=== PATIENT | male | born 1960 | race Caucasian/White ===

== ENCOUNTER 2023-02-15 12:51 | Outpatient (REF) | payer BC, SELFPAY ==
[2023-02-16 13:09] LABS: Urine Cytology See Pathology rpt
== END 2023-02-15 12:52 | disposition home or self-care (01) ==
LOC: HO.LAB 12:51
PROVIDERS: PCP Internal Medicine; Visit Provider Nurse Practitioner Family
DX: R31.0 Gross hematuria (principal); C61 Malignant neoplasm of prostate; Z87.891 Personal history of nicotine dependence
CPT/HCPCS: 81003; 88112

== ENCOUNTER 2023-02-15 12:51 | Outpatient (AMB) | payer BC, SELFPAY ==
--- NOTE | 2023-02-15 13:08 | A.OFFVIS_ITS ---
Intake Intake Visit Reasons: Gross Hematuria Intake Note: New Patient presents for initial visit for gross hematuria Urology Medications: none Blood Thinner: none Embedded Hardware Engineer Required: No Accompanied by: Self / Same As Patient Allergies No Known Allergies Allergy (Verified 02/15/23 14:01) Medication List - Last Reconciled 02/15/23 by MARGARET Garcia amlodipine 10 mg PO DAILY HPI HPI Comments History of Present Illness Details Alcides is a very pleasant 62-year-old male patient of Dr. Dominguez. He has a past medical history of hypertension, GERD, hemorrhoids, osteoarthritis, vitamin-D deficiency, and prostate cancer. He presents to the office today as a new patient for gross hematuria. In discussion with the patient today reports a previous history of prostate cancer approximately 5 years ago in underwent a prostatectomy as well as radiation. he reports following up with [facility] in has since been in remission. He reports his PSAs have all been undetectable. He presents to the office today for new onset gross hematuria x2. Discussed at length potential causes of gross hematuria related to history of radiation. However, patient does have a previous smoking history and is currently smokes recreational marijuana. He denies any previous known chemical workplace exposure. He denies urinary urgency, urinary frequency, incontinence, nocturia, hematuria, dysuria, foul smelling urine, changes to urinary stream, flank pain, fever, and or chills. He is happy with his current voiding parameters. Discussed surveillance monitoring verses further gross hematuria workup given history of smoking. Discussed risks and benefits at length. All questions were answered. In office urinalysis results reviewed with the patient today. No microscopic hematuria noted. [facility] Medical History GERD (gastroesophageal reflux disease) Osteoarthritis of left knee Impaired fasting glucose Mixed hyperlipidemia Tendonitis Hemorrhoids Mononucleosis Hypertension Vitamin D deficiency Surgical History (Updated 02/15/23 @ 15:57 by Emily Olvera) History of prostatectomy Review of Systems Const Reports no additional complaints Eyes Reports no additional complaints ENT Reports no additional complaints Card Reports as per HPI Resp Reports no additional complaints GI Reports as per HPI Reports as per HPI Musc Reports as per HPI Neuro Reports no additional complaints Psych Reports no additional complaints Endo Reports no additional complaints Dudley/Lymph Reports no additional complaints Aller/Immun Reports no additional complaints Physical Exam Const General: cooperative, healthy appearing, comfortable, no acute distress, well developed, alert and awake Orientation/consciousness: patient oriented x3 Limitations: no limitations HEENT Head: Yes normal to inspection, Yes normocephalic and Yes atraumatic Ears: hearing grossly normal bilaterally Eyes General: appearance normal, both eyes and all related structures Neck Neck: Yes normal visual inspection and Yes trachea midline Chest Chest palpation & inspection: normal inspection of the chest Resp Effort & Inspection: normal respiratory effort and able to speak in complete sentences Cardio Rate: regular rate GI Inspection: Yes normal to inspection General: Yes no CVA tenderness Back/Spine/Pelvis Back: no CVA tenderness Skin General skin exam: no rashes or lesions noted Neuro General: patient oriented x3 Extrem General: Yes normal to inspection Psych Appearance: grossly normal and well kempt Mental Status: mental status grossly normal Speech and movement: Normal speech and movement present and Clear speech present Affect: normal affect Attitude: cooperative Thought process: Normal thought process present Thought content: Normal thought content present Insight: Fair insight present (Psych) Judgement: Fair judgement present (Psych) Results AMB Urinalysis, Automated UA Leukoctes 0 Shahid/uL Last Edit by Violin Memory on 02/15/23 13:37 UA Nitrite Negative Last Edit by Violin Memory on 02/15/23 13:37 UA Urobilinogen 0.2 mg/dL Last Edit by Violin Memory on 02/15/23 13:37 UA Protein 15 mg/dL Last Edit by Violin Memory on 02/15/23 13:37 UA pH 6.0 Last Edit by Violin Memory on 02/15/23 13:37 UA Blood 0 Enrique/uL Last Edit by Violin Memory on 02/15/23 13:37 UA Specific [place] 1.025 Last Edit by Violin Memory on 02/15/23 13:37 UA Ketone Negative Last Edit by Violin Memory on 02/15/23 13:37 UA Bilirubin 0 mg/dL Last Edit by Violin Memory on 02/15/23 13:37 UA Glucose 0 mg/dL Last Edit by Violin Memory on 02/15/23 13:37 Results Reviewed Results Reviewed: Laboratory Last Values Urine pH (Auto) 6.0 02/15/23 13:33 Specific [place] (Auto) 1.025 02/15/23 13:33 Urine Protein (Auto) 15 mg/dL 02/15/23 13:33 Glucose (UA)(Auto) 0 mg/dL 02/15/23 13:33 Urine Ketones (Auto) Negative 02/15/23 13:33 Urine Blood (Auto) 0 Enrique/uL 02/15/23 13:33 Urine Nitrite (Auto) Negative 02/15/23 13:33 Urine Bilirubin (Auto) 0 mg/dL 02/15/23 13:33 Urine Urobilinogen (Auto) 0.2 mg/dL 02/15/23 13:33 Leukocyte Esterase (Auto) 0 Shahid/uL 02/15/23 13:33 Assessment & Plan Assessment & Plan (1) Gross hematuria: Code(s): R31.0 - Gross hematuria (2) History of nicotine dependence: Code(s): Z87.891 - Personal history of nicotine dependence (3) Prostate cancer: Code(s): C61 - Malignant neoplasm of prostate Plan In office urinalysis results reviewed with the patient today; as noted above; will send for urine cytology. Discussed at length potential causes of gross hematuria Discussed likely related to history of prostate cancer with radiation however patient with smoking history and currently smokes recreational marijuana. Discussed risks and benefits of surveillance monitoring verses further workup with urine cytology, CT urogram, and in office cystoscopy. Will obtain CT urogram for further assessment evaluation. BUN and creatinine ordered for imaging Patient reports be happy with current voiding parameters. Educated, encouraged, and stressed the importance of drinking plenty of water daily. Follow-up in office cystoscopy with imaging and labs to be completed prior; or sooner with any issues, concerns, and or questions. Orders: Orders Blood Urea Nitrogen 02/15/23 R31.0 - Gross hematuria CT urogram 02/15/23 R31.0 - Gross hematuria AMB Urinalysis Automated 02/15/23 Z13.9 - Encounter for screening, unspecified Urine Cytology 02/15/23 R31.0 - Gross hematuria Creatinine 02/15/23 R31.0 - Gross hematuria Patient Instructions: The patient had an opportunity to ask questions regarding the treatment plan. All questions were answered. Physical exam, labs, and imaging were discussed and reviewed in detail. As well as risks, benefits, and discussion of treatment choices. No major barriers to understanding were identified. The patient expressed understanding and agreement with the above treatment plan. The patient was made aware they should contact our office by phone for worsening of their current condition, the appearance of new symptoms, or with any questions or concerns. Compliance is encouraged with any medications and follow up testing that is ordered. It is a privilege to be allowed the opportunity to participate in? your urological care.? Again, if you have any questions or concerns If you have any questions or concerns please do not hesitate to contact me. The office is [phone]. This note is constructed using voice recognition software. While every effort has been made to ensure accuracy dross puller errors may have been included. Yours sincerely, MARGARET Garcia Coding Level of Care Code New Pt Level 3 (67891) Diagnoses Gross hematuria R31.0 History of nicotine dependence Z87.891 Prostate cancer C61
== END 2023-02-15 13:48 | disposition home or self-care (01) ==
PROVIDERS: PCP Internal Medicine; Visit Provider Nurse Practitioner Family
DX: R31.0 Gross hematuria (principal); Z87.891 Personal history of nicotine dependence; C61 Malignant neoplasm of prostate
CPT/HCPCS: 99203

== ENCOUNTER 2023-04-08 15:00 | Outpatient (REF) | payer BC, SELFPAY ==
--- NOTE | ~2023-04-08 | CT_ITS ---
EXAMINATION: CT ABDOMEN AND PELVIS WITHOUT AND WITH CONTRAST CLINICAL INFORMATION: Gross hematuria COMPARISON: None available. TECHNIQUE: Noncontrast CT of the abdomen and pelvis is performed followed by split bolus contrast-enhanced images using 85 mL Omnipaque 350 contrast.? Postcontrast imaging is performed during the combined nephrogram and excretion phase. Sagittal and coronal reformatted images were obtained on the technologist's workstation for both the precontrast and postcontrast phases. This CT examination was performed using dose optimization techniques as appropriate, variously including the following: *Automated exposure control *Adjustment of mA and/or kV according to patient size (this includes techniques or standardized protocols for targeted exams where dose is matched to indication/reason for exam; i.e. extremities or head) *Use of iterative reconstruction technique DLP: 1428 mGy-cm FINDINGS: LUNG BASES: Bilateral lung bases are clear. LIVER: No focal lesion is seen in the liver. There is hepatic steatosis, mean attenuation of only 9.5 Hounsfield units, compared to splenic attenuation of 43.0 Hounsfield units. GALLBLADDER AND BILIARY TREE: Gallbladder appears unremarkable without calcified stones. Common bile duct is not dilated. SPLEEN: The spleen is normal in size without focal lesion. PANCREAS: The pancreas appears unremarkable. ADRENAL GLANDS: Adrenal glands are normal in size without focal lesion bilaterally. KIDNEYS: Precontrast images show no calcified renal stones. Post contrast nephrographic phase images show normal uniform bilateral nephrograms. Excretory phase images show normal excretion of contrast into bilateral renal calyces, pelvises and ureters without filling defects. BOWELS: There is no abnormal dilatation of large and small bowel loops. Multiple diverticula are seen in the descending colon without inflammatory changes. RETROPERITONEUM: No abnormally enlarged retroperitoneal lymph nodes, mass or hematoma could be seen. BLOOD VESSELS: Abdominal aorta is normal in size with extensive atherosclerotic calcifications and smoothly patent. ABDOMINAL WALL: Abdominal subcutaneous tissue and muscle are intact. No evidence of ventral hernia. PERITONEUM: Several periportal lymph nodes are seen surrounding the main portal vein, measuring up to 0.9 cm in short axis, series 8 image #31. There was no ascites. There were no abdominal peritoneal inflammatory changes seen. No free peritoneal air was seen. No abnormally enlarged mesenteric lymph nodes are found. BONES: No fracture or dislocation. No focal bone lesion diagnostic of metastatic disease could be seen in the lumbar region. EXAMINATION: CT pelvis. TECHNIQUE: Multiple axial images were obtained from iliac crest to the inferior pubic rami before and following the administration of 85 mL of Omnipaque 350. Coronal and sagittal images were reconstructed from axial image data. Maximum intensity projection images of the pelvis were also reconstructed. Dose reduction technique: One or more of the following individual dose optimization techniques were used including: Automated exposure control, mA and/or kV were adjusted according to patient size or iterative reconstruction. FINDINGS: URINARY BLADDER AND URETERS: Precontrast images show no calcified urinary bladder stone or distal ureteric stones. A urachal sinus tract is seen leading from the dome of urinary bladder up to the anterior abdominal peritoneum just beneath the umbilicus. Urinary bladder fills normally with contrast without filling defects. There is normal visualization of bilateral distal ureters which are normal in size. There is mild dilatation of the upper prostatic urethra. BOWELS: There is no abnormal dilatation of large and small bowel loops. Numerous diverticula are seen in the sigmoid colon and descending colon without inflammatory changes. Appendix cannot be identified. GENITAL ORGANS: Seminal vesicles are unremarkable. Prostate gland is surgically absent. Multiple surgical clips are seen in the region of prostatectomy bed. LYMPH NODES: No abnormally enlarged iliac or inguinal lymph nodes are seen. PERITONEUM: No inflammatory changes, ascites or free peritoneal air are found in the pelvis. Bilateral small inguinal hernias containing mesenteric fat. BONES: No fracture or dislocation. No focal bone lesion diagnostic of metastatic disease could be seen in the pelvis. CT/CT urogram IMPRESSION: 1. No evidence of renal mass, nephrolithiasis or hydroureteronephrosis. 2. A urachal sinus tract is seen leading from the dome of the urinary bladder up to the anterior abdominal peritoneum just beneath the umbilicus. 3. Descending and sigmoid: Diverticulosis without diverticulitis. 4. Marked Hepatic steatosis. 5. Nonspecific periportal lymph nodes. 6. Bilateral small inguinal hernias containing mesenteric fat. 7. Status post prostatectomy.
[2023-04-08] MEDS: iohexoL 350 MG/ML 75 ML INFUS..BTL 85 ML IV (16:23)
[2023-04-09 08:34] LABS: Creatinine POC 0.8 mg/dL (0.5-1.4); GFR POC > 60
== END 2023-04-08 15:01 | disposition home or self-care (01) ==
LOC: HO.CT 15:00
PROVIDERS: PCP Internal Medicine; Visit Provider Nurse Practitioner Family
DX: R31.0 Gross hematuria (principal)
CPT/HCPCS: 74178; 82565; Q9967

== ENCOUNTER 2023-04-24 14:45 | Outpatient (AMB) | payer BC, SELFPAY ==
--- NOTE | 2023-04-24 15:32 | A.OFFVIS_ITS ---
Intake Intake Visit Reasons: cysto/CT Intake Note: Patient presents today for a Cystoscopy Meds: None Allergies to Antibiotic: No Known Allergies Blood Thinner: None Urinalysis test clear for Cysto? Yes Disposable Uro-G Cystoscope Cannula: Lot: [id number] Exp: 07/29/2024 Round Kiln Drawer Required: Yes Accompanied by: Self / Same As Patient Allergies No Known Allergies Allergy (Verified 04/24/23 15:33) HPI HPI Comments History of Present Illness Details Alcides is a pleasant male. He is a patient of Dr. Dominguez. He seen for the following urologic conditions - prostate cancer - hematuria - radiation cystitis Here for cystoscopy Cystoscopy shows radiation cystitis Radiation cystitis Episodes of hematuria Discussed situations with this might occur Could use short courses of tranexamic acid if needed Prostate cancer Initial therapy prostatectomy Rising PSA Salvage radiation 2018 [facility] Medical History GERD (gastroesophageal reflux disease) Osteoarthritis of left knee Impaired fasting glucose Mixed hyperlipidemia Tendonitis Hemorrhoids Mononucleosis Hypertension Vitamin D deficiency Surgical History History of prostatectomy Review of Systems Const Denies chills and Denies fever(s) Card Reports no additional complaints and Denies syncope Resp Denies cough GI Denies abdominal pain and Denies heartburn Reports as per HPI and Denies change in libido Neuro Denies syncope Psych Denies change in libido Endo Denies change in libido Physical Exam Const General: cooperative, healthy appearing, comfortable and no acute distress Orientation/consciousness: patient oriented x3 HEENT Face and sinus: Yes normal facial exam Mouth: moist mucous membranes Neck Neck: Yes normal visual inspection, Yes full ROM and Yes trachea midline Chest Chest palpation & inspection: normal inspection of the chest Resp Effort & Inspection: normal respiratory effort, able to speak in complete sentences and no respiratory distress GI Inspection: Yes normal to inspection Back/Spine/Pelvis Cervical Spine: normal cervical lordosis Thoracic/Lumbar Spine: thoracic and lumbar spine normal to inspection Skin General skin exam: no rashes or lesions noted Neuro General: patient oriented x3, gait normal, tone normal and moves all extremities Extrem General: Yes normal to inspection and Yes capillary refill normal Office Procedures Cystoscopy Consent Discussed risk and benefit or proposed procedure with the patient. Information consent for procedure given to the patient. Discussed technical aspects, risks, benefits and alternatives in full. Addressed all of the patient's questions and concerns regarding the procedure. The patient demonstrated knowledge and understanding. They wish to proceed with this procedure. Preparation The patient was prepped in the usual manner. A sulfonator operator was present and in the room. Genitalia was prepped with betadine solution in a sterile manner. Lidocaine Jelly 2% was placed into the urethra and 16Fr flexible Olympus cystoscope was inserted into the meatus after adequate lubrication. Procedure Meatus circumcised Urethra anterior posterior urethra normal Prostatic Urethra prostate absent Bladder examination with retroflexion of cystoscope Bladder Orifices normal shape and position Bladder Capacity normal Trabeculations radiation cystitis throughout base of bladder Cellule Formation - Diverticulum Formation - Mucosal Erythema - Bladder Tumor - [id number] DISPOSABLE SCOPE URO-G FLEXIBLE SCOPE Procedure code (CPT) selection complete Office Meds lidocaine HCl 2 % mucosal jelly in applicator Performing Provider: Teja Neal MD Performing Location: [facility] Administered by: Rogelio Willard LPN on 04/24/23 15:54 Dose Route Admin Location Dispensed Lot Number Expiration Date [facility] 10 mL intra-urethral 10 mL nitrofurantoin monohydrate/macrocrystals 100 mg capsule Performing Provider: Teja Neal MD Performing Location: [facility] Administered by: Rogelio Willard LPN on 04/24/23 15:54 Dose Route Admin Location Dispensed Lot Number Expiration Date [facility] 100 mg PO 1 cap naproxen 500 mg tablet Performing Provider: Teja Neal MD Performing Location: [facility] Administered by: Rogelio Willard LPN on 04/24/23 15:54 Dose Route Admin Location Dispensed Lot Number Expiration Date [facility] 500 mg PO 1 tab Results AMB Urinalysis, Automated UA Leukoctes 0 Shahid/uL Last Edit by Kristan Mosqueda CMA on 04/24/23 15 :53 UA Nitrite Negative Last Edit by [facility], [facility] on 04/24/23 15: 53 UA Urobilinogen 0.2 mg/dL Last [facility], [facility] on 4 15:53 UA Protein 0 mg/dL Last Edit by [facility], [facility] on 04/24/23 15:53 UA pH 6.0 Last Edit by [facility], [facility] on 04/24/23 15:53 UA Blood 0 Enrique/uL Last Edit by [facility], [facility] on 04/24/23 15:53 UA Specific [place] 1.025 Last Edit by [facility], [facility] on 15:53 UA Ketone Negative Last Edit by [facility], [facility] on 04/24/23 15:5 3 UA Bilirubin 0 mg/dL Last Edit by [facility], [facility] on 04/24/23 15: 53 UA Glucose 0 mg/dL Last Edit by [facility], [facility] on 04/24/23 15:53 Results Reviewed Results Reviewed: Laboratory Last Values Urine pH (Auto) 6.0 04/24/23 15:52 Specific [place] (Auto) 1.025 04/24/23 15:52 Urine Protein (Auto) 0 mg/dL 04/24/23 15:52 Glucose (UA)(Auto) 0 mg/dL 04/24/23 15:52 Urine Ketones (Auto) Negative 04/24/23 15:52 Urine Blood (Auto) 0 Enrique/uL 04/24/23 15:52 Urine Nitrite (Auto) Negative 04/24/23 15:52 Urine Bilirubin (Auto) 0 mg/dL 04/24/23 15:52 Urine Urobilinogen (Auto) 0.2 mg/dL 04/24/23 15:52 Leukocyte Esterase (Auto) 0 Shahid/uL 04/24/23 15:52 Assessment & Plan Assessment & Plan (1) Prostate cancer: Code(s): C61 - Malignant neoplasm of prostate (2) Gross hematuria: Code(s): R31.0 - Gross hematuria (3) Radiation cystitis: Code(s): N30.40 - Irradiation cystitis without hematuria Plan Twelve month follow-up PSA Orders: Orders AMB Cystoscopy Today C61 - Malignant neoplasm of prostate, R31.0 - Gross hematuria AMB Urinalysis Automated Today R33.9 - Retention of urine, unspecified Prostate Specific Antigen 364 Days C61 - Malignant neoplasm of prostate Patient Instructions: Imaging studies, laboratory and physical exam results were discussed and reviewed in detail. No major barriers to patient understanding were identified. An opportunity to ask questions regarding the treatment plan was provided. All questions were answered. The patient expressed understanding and agreement with the above treatment plan. The patient is aware they should contact our office by phone for worsening of their current condition or the appearance of new urologic symptoms. Compliance is encouraged with any medications and followup testing that is ordered. It is a privilege to participate in the urologic care of your patient. If you have any questions or concerns regarding treatment for the above conditions, or other urologic issues, please do not hesitate to contact me. The office telephone contact is [phone]. This note is constructed using voice recognition software. While every effort has been made to ensure accuracy computer forensics analyst errors may have been included. Yours sincerely, Dr Teja Neal MD, [facility] - Urology Providers of Expert, Compassionate Care for the Genitourinary System Coding Level of Care Code Est Pt Level 3 (13472) Diagnoses Prostate cancer C61 Gross hematuria R31.0 Radiation cystitis N30.40 CPT Codes Cystoscopy - CPT: [id number] ([id number])
== END 2023-04-24 16:32 | disposition home or self-care (01) ==
PROVIDERS: PCP Internal Medicine; Visit Provider Urology
DX: C61 Malignant neoplasm of prostate (principal); R31.0 Gross hematuria; N30.40 Irradiation cystitis without hematuria
CPT/HCPCS: 52000; 99213

== ENCOUNTER → 2023-04-24 14:45 | Outpatient (BNVA) | payer BC, SELFPAY | PROVIDERS: PCP Internal Medicine; Visit Provider Urology | DX: C61 Malignant neoplasm of prostate (principal); N30.41 Irradiation cystitis with hematuria | CPT/HCPCS: 52000; 81003 ==

== ENCOUNTER 2024-06-16 09:47 | Outpatient (AMB) | payer BC, SELFPAY ==
--- NOTE | 2024-06-16 10:00 | A.OFFVIS_ITS ---
Intake Visit Reasons: 1y PSA(set) Intake Note: Patient presents for follow up visit for prostate cancer , hematuria, and psa lab results PSA: <0.1 Urology Medications: none Blood Thinner: none Metal Grinder Required: No Accompanied by: Self / Same As Patient Allergies No Known Allergies Allergy (Verified 06/16/24 10:28) Medication List - Last Reconciled 06/16/24 by DUNCAN Garcia lisinopril 10 mg PO DAILY HPI Comments Details: Alcides is a pleasant 63 year old male patient of Dr. Dominguez. He has a past medical history of GERD, osteoarthritis, hyperlipidemia, tendinitis, hemorrhoids, hypertension, and vitamin-D deficiency. He presents to the office today for follow-up of his prostate cancer, hematuria, and radiation cystitis. In discussion with the patient today reports to be doing and feeling well. He denies having had any bothersome urinary issues or concerns since his last office visit here over a year ago. Of note, patient underwent an office cystoscopy 05/[address] Neal that showed radiation cystitis as patient had been experiencing episodes of hematuria. Recent PSA results reviewed with the patient today. PSA remains undetectable. 06/09 0.1. He reports continuing to follow-up with PCP as well as radiation oncologist. In office urinalysis results reviewed with the patient today. When asked he denies urinary urgency, urinary frequency, incontinence, nocturia, dysuria, foul smelling urine, changes to urinary stream, flank pain, fever, and or chills. He is happy with his current voiding parameters. He is enquiring. Follow-up as PSA has remained undetectable and continues to follow-up with Radiation Oncology in does not feel he has any bothersome urinary issues. He otherwise offers no other issues or concerns at this time Prostate cancer Initial therapy prostatectomy Rising PSA Salvage radiation 2018 Discussion Notes I discussed with the patient the ongoing management strategy for his radiation cystitis and the importance of continuous monitoring of PSA levels to ensure they remain undetectable. The patient understands that his condition is stable and requires monitoring. He is requesting to monitor PSAs with his primary care physician. We reviewed that the potential risks associated with radiation cystitis include occasional bleeding episodes, which currently resolve spontaneously. I explained that any significant change in symptoms should prompt immediate review. We also discussed the routine protocol of scheduling follow- ups. The patient consented to this plan and is comfortable with current management, acknowledging future visits with our department can be arranged. [facility] Medical History GERD (gastroesophageal reflux disease) Osteoarthritis of left knee Impaired fasting glucose Mixed hyperlipidemia Tendonitis Hemorrhoids Mononucleosis Hypertension Vitamin D deficiency Surgical History History of prostatectomy Review of Systems Const Reports no additional complaints Eyes Reports no additional complaints ENT Reports no additional complaints Card Reports as per HPI Resp Reports no additional complaints GI Reports as per HPI Reports as per HPI Musc Reports as per HPI Neuro Reports no additional complaints Psych Reports no additional complaints Endo Reports no additional complaints Dudley/Lymph Reports no additional complaints Aller/Immun Reports no additional complaints Physical Exam Const General: cooperative, healthy appearing, comfortable, no acute distress, well developed, alert and awake Orientation/consciousness: patient oriented x3 Limitations: no limitations HEENT Head: Yes normal to inspection, Yes normocephalic and Yes atraumatic Ears: hearing grossly normal bilaterally Eyes General: appearance normal, both eyes and all related structures Neck Neck: Yes normal visual inspection and Yes trachea midline Chest Chest palpation & inspection: normal inspection of the chest Resp Effort & Inspection: normal respiratory effort and able to speak in complete sentences Cardio Rate: regular rate GI Inspection: Yes normal to inspection General: Yes no CVA tenderness Back/Spine/Pelvis Back: no CVA tenderness Skin General skin exam: no rashes or lesions noted Neuro General: patient oriented x3 Extrem General: Yes normal to inspection Psych Appearance: grossly normal and well kempt Mental Status: mental status grossly normal Speech and movement: Normal speech and movement present and Clear speech present Affect: normal affect Attitude: cooperative Thought process: Normal thought process present Thought content: Normal thought content present Insight: Fair insight present (Psych) Judgement: Fair judgement present (Psych) Results AMB Urinalysis, Automated UA Leukoctes 0 Shahid/uL Last Edit by Emily Olvera on 06/16/24 11:01 UA Nitrite Last Edit by Emily Olvera on 06/16/24 11:01 UA Urobilinogen 0.2 mg/dL Last Edit by Emily Olvera on 06/16/24 11:01 UA Protein 15 mg/dL Last Edit by Emily Olvera on 06/16/24 11:01 UA pH 6.0 Last Edit by Emily Olvera on 06/16/24 11:01 UA Blood 0 Enrique/uL Last Edit by Emily Olvera on 06/16/24 11:01 UA Specific Ponderosa 1.020 Last Edit by Emily Olvera on 06/16/24 11:01 UA Ketone Last Edit by Emily Olvera on 06/16/24 11:01 UA Bilirubin 0 mg/dL Last Edit by Emily Olvera on 06/16/24 11:01 UA Glucose 0 mg/dL Last Edit by Emily Olvera on 06/16/24 11:01 Results Reviewed Results Reviewed: Laboratory Last Values Urine pH (Auto) 6.0 06/16/24 11:00 Specific Ponderosa (Auto) 1.020 06/16/24 11:00 Urine Protein (Auto) 15 mg/dL 06/16/24 11:00 Glucose (UA)(Auto) 0 mg/dL 06/16/24 11:00 Urine Blood (Auto) 0 Enrique/uL 06/16/24 11:00 Urine Bilirubin (Auto) 0 mg/dL 06/16/24 11:00 Urine Urobilinogen (Auto) 0.2 mg/dL 06/16/24 11:00 Leukocyte Esterase (Auto) 0 Shahid/uL 06/16/24 11:00 Assessment & Plan Assessment & Plan (1) Radiation cystitis: Code(s): N30.40 - Irradiation cystitis without hematuria Category: Medical (2) Prostate cancer: Code(s): C61 - Malignant neoplasm of prostate Category: Medical Plan In office urinalysis results reviewed with the patient today; as noted above. Recent PSA results with the patient today; as noted above. Patient currently denies any bothersome urinary issues or concerns. He reports be happy with current voiding parameters. We discussed importance of following up with PCP as well as radiation oncology as planned. Follow-up PRN. Orders: Orders AMB Urinalysis Automated Today Z13.9 - Encounter for screening, unspecified Patient Instructions: The patient had an opportunity to ask questions regarding the treatment plan. All questions were answered. Physical exam, labs, and imaging were discussed and reviewed in detail. As well as risks, benefits, and discussion of treatment choices. No major barriers to understanding were identified. The patient e xpressed understanding and agreement with the above treatment plan. The patient was made aware they should contact our office by phone for worsening of their current condition, the appearance of new symptoms, or with any questions or concerns. Compliance is encouraged with any medications and follow up testing that is ordered. It is a privilege to be allowed the opportunity to participate in? your urological care.? Again, if you have any questions or concerns If you have any questions or concerns please do not hesitate to contact me. The office is [phone]. This note is constructed using voice recognition software. While every effort has been made to ensure accuracy wildlife control operator errors may have been included. Yours sincerely, MARGARET Garcia Coding Level of Care Code Est Pt Level 3 (40056) Diagnoses Radiation cystitis N30.40 Prostate cancer C61
--- OUTSIDE RECORDS SUMMARY | 2024-06-16 11:27 | XMS_ITS | Clinical Summary ---
Author Organization [facility], Address [address] [place] [address] [place] [address] Phone Care Team Providers Care Embedded Software Test Engineer Name Role Phone Ethan Dominguez MD Primary Care Provider [phone] Allergies Active Allergy Reactions Criticality Noted Date Comments Bee Pollen Swelling Low 06/08/2019 Swelling at site where he was stung. No reaction in any recent bee stings Bee Venom 06/08/2019 Medications lisinopril 10 MG tablet Take 1 tablet (10 mg total) by mouth 1 (one) time each day 90 tablet 3 05/23/2023 Active Active Problems Problem Noted Date Diagnosed Date Albuminuria Vitamin D deficiency Prediabetes Mixed hyperlipidemia Microalbuminuria Impaired fasting glucose Hypertension Hematuria Immunizations Name Administration Dates Next Due Pfizer SARS-COV-2 06/05/2020,05/15/2020 Family History Medical History Relation Comments COPD Father Colon polyps Father Diabetes Father Heart disease Father Heart failure Father Hypertension Father Kidney failure Father Hypertension Mother Stomach cancer Mother Atrial fibrillation Sibling Breast cancer Sibling Heart disease Sibling Heart failure Sibling Hypertension Sibling Other Sibling benign brain charlie or Pulmonary embolism Sibling Relation Status Comments Father Mother Sibling Social History Tobacco Use Types Packs/Day Years Used Date Smoking Tobacco: Former Cigarettes Sex and Gender Information Value Date Recorded Sex Assigned at Not on file Legal Sex Male 4:01 PM EST Gender Identity Not on file Sexual Orientation Not on file Last Filed Vital Signs Vital Sign Reading Time Taken Comments Blood Pressure 134/88 08/22/2023 4:05 PM EDT Pulse - - Temperature - - Respiratory Rate - - Oxygen Saturation - - Inhaled Oxygen Concentration - - Weight - - Height - - Body Mass Index - - Plan of Treatment Upcoming Encounters Date Type Department Care Team (Late st Contact Info) Description 08/20/2024 3:30 PM EDT Office Visit [facility], [address] [phone] Ankit Lugo MD [address] [place] [phone] Health Maintenance Due Date Last Done Comments Pneumococcal Vaccine: Pediat rics (0 to 5 Years) and At-Risk Patients (6 to 64 Years) (1 of 2 - PCV) 07/04/1967 Colorectal Cancer Screening: Annual FOBT 2010 Colorectal Cancer Screening: Colonoscopy 2010 Colorectal Cancer Screening: Sigmoidoscopy 2010 Influenza Vaccine (#1) 2023 Hepatitis B Vaccine Aged Out No longe r eligible based on patient's age to complete this topic Insurance [facility] Care Teams Embedded Software Test Engineer Relationship Specialty Start Date End Date Ethan Dominguez MD [facility] [employer] [address] PCP - General Internal Medicine 01/29/23
--- OUTSIDE RECORDS SUMMARY | 2024-06-16 11:27 | XMS_ITS | Clinical Summary ---
Author Organization [facility] Address [address] [place] [address] Care Team Providers Care Wrecking Mechanic Name Role Phone Ethan Dominguez MD Primary Care Provider [phone] Allergies Active Allergy Reactions Criticality Noted Date Comments Bee Sting 06/08/2019 Medications Medication Sig Dispensed Refills Start Date End Date Status EPIPEN 2-EDWINA 0.3 MG/0.3ML SOAJ INJECT SUBCUTANEOUSLY DIRECTED 2 02/11/2017 Active amLODIPine (NORVASC) tablet 2.5 mg Take 2.5 mg by mouth daily. 0 Active Glucosamine 750 MG TABS Take 750 mg by mouth 2 (two) times a day. 0 Active meloxicam (MOBIC) 15 MG tablet TAKE 1 TABLET BY MOUTH EVERY DAY 30 tablet 0 08/25/2019 Active acetaminophen (TYLENOL) 325 MG tablet Take 975 mg by mouth every 8 (eight) hours. 0 11/17/2019 Active amoxicillin (AMOXIL) 500 MG tablet Take 2,000mg PO one hour prior to dental procedures 0 11/25/2019 Active dexamethasone (DECADRON) tablet 2 mg Take five 2mg tablets (total 10mg) on the morning of . 9/2. 0 11/17/2019 Active docusate sodium (COLACE) 100 MG capsule Take 100 mg by mouth. 0 11/17/2019 Active fluocinonide (LIDEX) 0.05 % external solution 2 (two) times a day. 0 09/25/2019 Active gabapentin (NEURONTIN) 300 MG capsule Take 300 mg by mouth. 0 11/17/2019 Active HYDROmorphone (DILAUDID) 2 MG tablet Take 2-4 mg by mouth every 4 (four) hours as needed. 0 11/17/2019 Active omeprazole (PriLOSEC) 20 MG capsule Take 20 mg by mouth. 0 11/18/2019 Active ondansetron (ZOFRAN-ODT) 4 MG disintegrating tablet Take 4 mg by mouth every 6 (six) hours as needed. 0 11/17/2019 Active traMADol (ULTRAM) 50 MG tablet Take 50-100 mg by mouth every 6 (six) hours as needed. 0 11/25/2019 Active amLODIPine (NORVASC) tablet 10 mg 0 03/12/2020 Active Active Problems Problem Noted Date Diagnosed Date S/P arthroscopic partial medial meniscectomy -- LEFT 04/01/2018 Resolved Problems Problem Noted Date Diagnosed Date Resolved Date Chondral lesion 03/14/2018 04/01/2018 Acute medial meniscus tear of right knee 03/03/2018 04/01/2018 Acute medial meniscus tear of left knee 03/01/2017 04/01/2018 Primary localized osteoarthr osis of left lower leg 03/01/2017 04/01/2018 Family History Medical History Relation Name Comments Diabetes Father Heart disease Father Hyperlipidemia Father Cancer Mother Hyperlipidemia Mother Hypertension Mother Heart disease Sister Hyperlipidemia Sister Relation Name Status Comments Father Mother Sister Social History Tobacco Use Types Packs/Day Years Used Date Smoking Tobacco: Former Smokeless Tobacco: Never Comments:Quit 2010 Alcohol Use Standard Drinks/Week Comments Yes 1 (1 standard drink = 0.6 oz pure alcohol) 03/25/18 rum daily; none in last 2 wks Sex and Gender Information Value Date Recorded Sex Assigned at Male 03/25/2018 1:31 PM EST Gender Identity Not on file Sexual Orientation Not on file Job Start Date Occupation Industry Not on file Not on file Not on file Last Filed Vital Signs Vital Sign Reading Time Taken Comments Blood Pressure 126/72 03/26/2018 11:06 AM EST Pulse 78 03/26/2018 11:06 AM EST Temperature 36.6 ??C (97.8 ??F) 03/26/2018 10:[address] Respiratory Rate 16 03/26/2018 11:06 AM EST Oxygen Saturation 97% 03/26/2018 11:06 AM EST Inhaled Oxygen Concentration - - Weight 108.4 kg (239 lb) 03/15/2020 2:42 PM EST Height 175.3 cm (5' 9 ) 03/15/2020 2:42 PM EST Body Mass Index 35.29 03/15/2020 2:42 PM EST Plan of Treatment Health Maintenance Due Date Last Done Comments Hepatitis C Screening 1961 COVID-19 Vaccine (#1) 01/02/1962 Depression Screening 1973 BMI Counseling 07/04/1979 Preventative Health Evaluation 07/04/1979 DTap / Tdap / Td (1 - Tdap) 1980 Colon Cancer Screening (Colonoscopy) 2006 Shingrix-Zoster Vaccine (1 of 2) 07/04/2011 Influenza Vaccine (#1) 2023 RSV Adult > 60+ Yrs or Pregn ant (1 - 1-dose 75+ series) 2036 Hepatitis B Vaccines Aged Out No long er eligible based on patient's age to complete this topic Pneumococcal Vaccine Aged Out No long er eligible based on patient's age to complete this topic RSV Ped < 20 months Aged Out No longe r eligible based on patient's age to complete this topic Care Teams Wrecking Mechanic Relationship Specialty Start Date End Date Ethan Dominguez MD [address] [place] [address] PCP - General Internal Medicine 02/18/17
--- OUTSIDE RECORDS SUMMARY | 2024-06-16 11:28 | XMS_ITS | Encounter Summary ---
Author Organization [facility] Address [address] [place] [address] Phone Care Team Providers Care Visitor Services Specialist Name Role Phone Ethan Dominguez MD Primary Care Provider [phone] Encounter Details Date Type Department Care Team (Late st Contact Info) Description 08/21/2023 Documentation Only [facility] [address] [place] [phone] [place] [facility] [address] [place] [phone] Social History Tobacco Use Types Packs/Day Years Used Date Smoking Tobacco: Former Cigarettes Sex and Gender Information Value Date Recorded Sex Assigned at Not on file Legal Sex Male 4:01 PM EST Gender Identity Not on file Sexual Orientation Not on file documented as of this encounter Plan of Treatment Upcoming Encounters Date Type Department Care Team (Late st Contact Info) Description 08/20/2024 3:30 PM EDT Office Visit [facility] [address] [place] [phone] Ankit Lugo MD [address] [place] [address] [place] [phone] documented as of this encounter Visit Diagnoses Not on filedocumented in this encounter Care Teams Visitor Services Specialist Relationship Specialty Start Date End Date Ethan Dominguez MD [address] PCP - General Internal Medicine 01/29/23 documented as of this encounter
--- OUTSIDE RECORDS SUMMARY | 2024-06-16 11:28 | XMS_ITS | Encounter Summary ---
Author Organization [facility] Address [address] [place] [address] Phone Care Team Providers Care Dope Dry House Operator Name Role Phone Ethan Dominguez MD Primary Care Provider [phone] Encounter Details Date Type Department Care Team (Late st Contact Info) Description 08/21/2023 Documentation Only [facility] [address] [place] [phone] [facility] [address] [place] [phone] Social History Tobacco Use Types Packs/Day Years [...] Visit [facility] [address] [place] [phone] Ankit Lugo MD [address] [place] [address] [place] [phone] documented as of this encounter Visit Diagnoses Not on filedocumented in this encounter Care Teams Dope Dry House Operator Relationship Specialty Start Date End Date Ethan Dominguez MD [address] PCP - General Internal Medicine 01/29/23 documented as of this encounter
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
--- OUTSIDE RECORDS SUMMARY | 2024-06-16 11:28 | XMS_ITS | Encounter Summary ---
Author Organization [facility] Address [address] [place] [address] Phone Care Team Providers Care Molding Utility Worker Name Role Phone Ethan Dominguez MD Primary Care Provider Encounter Details Date Type Department Care Team (Late st Contact Info) Description 08/21/2023 Documentation Only [facility] [address] [place] [phone] Mali Solis [address] [place] [phone] Social History Tobacco Use Types Packs/Day Years [...] Visit [facility] [address] [place] [phone] Ankit Lugo MD [address] [place] [address] [place] [phone] documented as of this encounter Visit Diagnoses Not on filedocumented in this encounter Care Teams Molding Utility Worker Relationship Specialty Start Date End Date Ethan Dominguez MD [address] PCP - General Internal Medicine 01/29/23 documented as of this encounter
--- OUTSIDE RECORDS SUMMARY | 2024-06-16 11:28 | XMS_ITS | Encounter Summary ---
Author Organization [facility] Address [address] [place] [address] Phone Care Team Providers Care Drug And Alcohol Treatment Specialist Name Role Phone Ethan Dominguez MD Primary Care Provider [phone] Encounter Details Date Type Department Care Team (Late st Contact Info) Description 08/21/2023 Documentation Only [facility] [address] [place] [phone] Mali Solis [address] [place] [phone] Social History Tobacco Use Types Packs/Day Years [...] Visit [facility] [address] [place] [phone] Ankit Lugo MD [address] [place] [address] [place] [phone] documented as of this encounter Visit Diagnoses Not on filedocumented in this encounter Care Teams Drug And Alcohol Treatment Specialist Relationship Specialty Start Date End Date Ethan Dominguez MD [address] PCP - General Internal Medicine 01/29/23 documented as of this encounter
--- OUTSIDE RECORDS SUMMARY | 2024-06-16 11:28 | XMS_ITS | Encounter Summary ---
Author Organization [facility] Address [address] [place] [address] Phone Care Team Providers Care Salt Lifter Name Role Phone Ethan Dominguez MD Primary Care Provider [phone] Encounter Details Date Type Department Care Team (Late st Contact Info) Description 08/21/2023 Documentation Only [facility] [address] [place] [phone] Mali Solis [address] [place] [phone] Social History Tobacco Use Types Packs/Day Years [...] Visit [facility] [address] [place] [phone] Ankit Lugo MD [address] [place] [address] [place] [phone] documented as of this encounter Visit Diagnoses Not on filedocumented in this encounter Care Teams Salt Lifter Relationship Specialty Start Date End Date Ethan Dominguez MD [address] PCP - General Internal Medicine 01/29/23 documented as of this encounter
--- OUTSIDE RECORDS SUMMARY | 2024-06-16 11:28 | XMS_ITS | Encounter Summary ---
Author Organization [facility] Address [address] [place] [address] Phone Care Team Providers Care Development Manager Name Role Phone Ethan Dominguez MD Primary Care Provider Encounter Details Date Type Department Care Team (Late st Contact Info) Description 01/29/2023 Documentation Only [facility] [address] [place] [phone] Ethan Dominguez MD [address] Social History Tobacco Use Types Packs/Day Years Used Date Smoking Tobacco: Never Assessed Sex and Gender Information Value Date Recorded Sex Assigned at Not on file Legal Sex Male 4:01 PM EST Gender Identity Not on file Sexual Orientation Not on file documented as of this encounter Plan of Treatment Upcoming Encounters Date Type Department Care Team (Late st Contact Info) Description 08/20/2024 3:30 PM EDT Office Visit [facility] [address] [place] [phone] Ankit Lugo MD [address] [place] [address] [place] [phone] documented as of this encounter Visit Diagnoses Not on filedocumented in this encounter Care Teams Development Manager Relationship Specialty Start Date End Date Ethan Dominguez MD [address] PCP - General Internal Medicine 01/29/23 documented as of this encounter
--- OUTSIDE RECORDS SUMMARY | 2024-06-16 11:28 | XMS_ITS | Encounter Summary ---
Author Organization [facility] Address [address] [place] [address] Phone Care Team Providers Care Catering Service Manager Name Role Phone Ethan Dominguez MD Primary Care Provider [phone] Encounter Details Date Type Department Care Team (Late st Contact Info) Description 08/21/2023 Documentation Only [facility] [address] [place] [phone] Mali Solis [address] [place] [phone] Social History Tobacco Use Types Packs/Day Years [...] Visit [facility] [address] [place] [phone] Ankit Lugo MD [address] [place] [address] [place] [phone] documented as of this encounter Visit Diagnoses Not on filedocumented in this encounter Care Teams Catering Service Manager Relationship Specialty Start Date End Date Ethan Dominguez MD [address] PCP - General Internal Medicine 01/29/23 documented as of this encounter
--- OUTSIDE RECORDS SUMMARY | 2024-06-16 11:28 | XMS_ITS | Encounter Summary ---
Author Organization [facility] Address [address] [place] [address] Phone Care Team Providers Care Benefits Director Name Role Phone Ethan Dominguez MD Primary Care Provider Encounter Details Date Type Department Care Team (Late st Contact Info) Description 08/21/2023 Documentation Only [facility] [address] [place] [phone] Mali Solis [address] [place] [phone] Social History Tobacco Use Types Packs/Day Years [...] Visit [facility] [address] [place] [phone] Ankit Lugo MD [address] [place] [address] [place] [phone] documented as of this encounter Visit Diagnoses Not on filedocumented in this encounter Care Teams Benefits Director Relationship Specialty Start Date End Date Ethan Dominguez MD [address] PCP - General Internal Medicine 01/29/23 documented as of this encounter
--- OUTSIDE RECORDS SUMMARY | 2024-06-16 11:28 | XMS_ITS | Encounter Summary ---
Author Organization [facility] Address [address] [place] [address] Phone Care Team Providers Care Face Boss Name Role Phone Ethan Dominguez MD Primary Care Provider [phone] Encounter Details Date Type Department Care Team (Late st Contact Info) Description 08/21/2023 Documentation Only [facility] [address] [place] [phone] Mali Solis [address] [place] [phone] Social History Tobacco Use Types Packs/Day Years [...] [facility] [address] [place] [phone] Ankit Lugo MD [address] [place] [address] [place] [phone] documented as of this encounter Visit Diagnoses Not on filedocumented in this encounter Care Teams Face Boss Relationship Specialty Start Date End Date Ethan Dominguez MD [address] PCP - General Internal Medicine 01/29/23 documented as of this encounter
== END 2024-06-16 10:20 | disposition home or self-care (01) ==
LOC: HO.HUSH 09:48
PROVIDERS: PCP Internal Medicine; Visit Provider Nurse Practitioner Family
DX: N30.40 Irradiation cystitis without hematuria (principal); C61 Malignant neoplasm of prostate; Z13.9 Encounter for screening, unspecified
CPT/HCPCS: 99213

== ENCOUNTER → 2024-06-16 09:47 | Outpatient (BNVA) | payer BC, SELFPAY | PROVIDERS: PCP Internal Medicine; Visit Provider Nurse Practitioner Family | DX: C61 Malignant neoplasm of prostate (principal); N30.41 Irradiation cystitis with hematuria | CPT/HCPCS: 81003 ==